=== PATIENT | female | born 1990 | race Caucasian/White ===

== ENCOUNTER → 2021-09-04 | Emergency (ER) | payer MEDICAID ==
[~2021-09-04] VITALS: Ht 165.1 cm; Wt 63.5 kg
[2021-09-04 19:32] VITALS: BP_SYST 105
--- NOTE | 2021-09-04 19:45 | NUR ---
Dr Salvador evaluating patient in the triage room
== END | disposition home or self-care (01) ==
LOC: SED 19:15
DX: R10.11 Right upper quadrant pain (principal)
CPT/HCPCS: 99281